=== PATIENT | female | born 1980 | race Two or more races ===

== ENCOUNTER 2022-08-31 10:45 | Inpatient (IN) | payer OTHER ==
[~2022-08-31] VITALS: Ht 162.6 cm; Wt 93.0 kg
[2022-09-01] MEDS ORDERED: ZESTORETIC 20-1 EAC1 PO (08:06)
[2022-09-01] MEDS ORDERED: HORIZANT300 MG PO (08:06)
[2022-09-01] MEDS ORDERED: PRILOSEC OTC20 MG PO (08:06)
[2022-09-06] MEDS ORDERED: CLIMARA PRO PA1 EACH (14:03)
[2022-09-08] MEDS ORDERED: LEVSIN0.125 MG PO (10:39)
[2022-09-08] MEDS ORDERED: PEPCID AC20 MG PO (10:39)
[2022-09-08] MEDS ORDERED: PERCOCET 5-3251 EACH PO (10:39)
== END 2022-09-08 14:02 | disposition home or self-care (01) | DRG 331 ==
LOC: O/R 09-06 05:15 → SURH 09-06 05:15
PROVIDERS: ADMIT Colon & Rectal Surgery; ATTEND Colon & Rectal Surgery
PROC: 0DJD8ZZ Inspection of Lower Intestinal Tract, Via Natural or Artificial Opening Endoscopic (ICD-10-PCS; 2022-09-06)
PROC: 0DTN4ZZ Resection of Sigmoid Colon, Percutaneous Endoscopic Approach (ICD-10-PCS; principal; 2022-09-06 12:00)
DX: K57.20 Diverticulitis of large intestine with perforation and abscess without bleeding (principal); I11.0 Hypertensive heart disease with heart failure

== ENCOUNTER 2023-09-24 19:43 | Emergency (ER) | payer OTHER ==
[~2023-09-24] VITALS: Ht 162.6 cm; Wt 98.9 kg
[~2023-09-24 19:43] MED LIST: CLIMARA PRO PA1 EACH; HORIZANT300 MG PO; LEVSIN0.125 MG PO; PEPCID AC20 MG PO; PERCOCET 5-3251 EACH PO; PRILOSEC OTC20 MG PO; ZESTORETIC 20-1 EAC1 PO
[2023-09-24 21:28] LABS: HEMOGLOBIN 12.8 g/dL (12.0-15.00); MEAN CELL VOLUME 87.1 fL (80.00-100.00); MEAN CORPUSCULAR HEMOGLOBIN 30.1 pg (27.00-32.0); MEAN CORPUSCULAR HGB CONC 34.5 g/dl (32.0-36.0); PLATELET COUNT 407 K/uL (150-450); RED BLOOD COUNT 4.25 M/uL (4.00-6.00); RED CELL DISTRIBUTION WIDTH 13.8 % (11.5-14.5)
[2023-09-24 21:54] LABS: ALBUMIN 3.6 gm/dL (3.4-5.0); BILIRUBIN TOTAL 0.34 mg/dL (0.3-1.2); CALCIUM 9.3 mg/dL (8.5-10.1); CREATININE SERUM 0.71 mg/dL (0.55-1.02); GFR 90.27; GLOBULINA 3.9 G/DL (2.4-3.5); POTASSIUM 3.4 mEq/L (3.5-5.1); TOTAL PROTEIN 7.5 gm/dL (6.4-8.2)
== END 2023-09-24 23:53 | disposition home or self-care (01) ==
LOC: ER 19:43
PROVIDERS: General Practice
DX: Q89.9 Congenital malformation, unspecified (principal)
CPT/HCPCS: 36415; 74177; Q9965